=== PATIENT | male | born 2000 | race Caucasian/White ===

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

== ENCOUNTER 2021-10-08 06:28 | Inpatient (IN) | payer MEDICAID ==
[2021-10-08] VITALS (792 sets, daily range): BP systolic 95–102; BP diastolic 48–69; PULSE 68–122; TEMP 97–98.1; O2SAT 93–100
[~2021-10-08] VITALS: Ht 172.7 cm; Wt 61.5 kg
[2021-10-08 06:58] LABS: BASO % 0.4 % (0.0-2.0); EOS % 0.1 % (0.0-4.0); GRAN # 7.2 K/mm3 (1.4-6.5); GRAN % 76.7 % (42.2-75.2); HEMATOCRIT 40.1 % (36.0-47.0); HEMOGLOBIN 13.4 g/dl (12.5-16.1); LYMPH # 1.6 K/mm3 (1.2-3.4); LYMPH % 17.1 % (20.0-51.0); MEAN CELL VOLUME 91 fl (80.0-95.0); MEAN CORPUSCULAR HEMOGLOBIN 30 pg (26-32); MEAN CORPUSCULAR HGB CONC 33 g/dl (33.0-37.0); MEAN PLATELET VOLUME 8.5 fl (7.4-10.4); MONO # 0.5 K/mm3 (0.1-0.6); MONO % 5.5 % (1.7-9.3); PLATELET COUNT 210 K/mm3 (130-400); RED BLOOD COUNT 4.42 M/mm3 (4.20-5.60); REDCELL DISTRIBUTION WIDTH-CV 12.9 % (11.5-14.5)
[2021-10-08 07:23] LABS: ALANINE AMINOTRANSFERASE 8 U/L (0-55); ALBUMIN 4.2 gm/dL (3.5-5.0); ALKALINE PHOSPHATASE 60 U/L (40-150); ANION GAP 14 mmol/L (7-16); AST,SGOT 17 U/L (5-34); BILIRUBIN,TOTAL 0.3 mg/dL (0.2-1.2); BLOOD UREA NITROGEN 10 mg/dL (9-21); CALCIUM 8.2 mg/dL (8.4-10.2); CARBON DIOXIDE 20 mmol/L (22-29); CHLORIDE 108 mmol/L (98-107); CREATININE, serum 0.88 mg/dL (0.72-1.25); GLUCOSE 118 mg/dL (70-99); POTASSIUM 3.5 mmol/L (3.5-4.5); SODIUM 142 mmol/L (136-145); TOTAL PROTEIN 6.6 gm/dL (6.2-8.1)
[2021-10-08 07:28] LABS: ACETAMINOPHEN < 1.0 ug/mL (10-30); SALICYLATE < 5.0 mg/dL (15.0-30.0)
[2021-10-08 07:29] LABS: ALCOHOL(ethanol),MEDICAL 310 mg/dL (0-10)
[2021-10-08 07:56] LABS: TRICYCLIC ANTIDEPRESS URINE NEGATIVE
[2021-10-08 09:28] LABS: ARTERIAL BLD GAS O2 SATURATION 99.4 % (92-100); ARTERIAL BLOOD GAS BASE EXCESS -5.5 (-2-2); ARTERIAL BLOOD GAS HCO3 18.1 meq/L (22-26); ARTERIAL BLOOD GAS PCO2 30.4 mmHg (35-45); ARTERIAL BLOOD GAS pH 7.39 (7.35-7.45)
[2021-10-08 09:30] LABS: ARTERIAL BLOOD GAS PO2 269.3 mmHg (80-100)
--- NOTE | 2021-10-08 09:45 | NUR ---
pt to ICU from ED. PT intubated on mechanical ventilator. PT moved to ICU BED. pt is trying to pull at ET tube and sit up out of bed. PT airway at risk. Propofol and fentanyl started per orders. See eMAR. PT placed on ICU monitor. Vitals obtained. Assessment completed. Hospitalist and Dr. Ellis notified of pateint's arrival. PT calms easily with sedation. OG and ET tube placement confirmed. [place] in place. Parents bedside
--- NOTE | 2021-10-08 12:23 | NUR ---
[facility] [facility] [facility] DC'D AT THIS TIME
--- NOTE | 2021-10-08 16:21 | NUR ---
PT EXTUBATED PER ORDER FROM DR. MARAVILLA. PT CURRENTLY ON ROOM AIR AND RESPONDING ACCORDINGLY. NO DISTRESS NOTED.
--- NOTE | 2021-10-08 16:31 | NUR ---
1500 - PATIENT BECAME VERY AGITATED ATTEMPTING TO PULL AT LINES. SEDATION MEDICATION TITRATED APPROPRIATELY. DR. MARAVILLA NOTIFIED. ORDERS FOR ALCOHOL LEVELS AND A SEDATION VACATION TO BE DONE. 1607- DR. MARAVILLA NOTIFIED OF PATEINT'S BLOOD ALCOHOLL LEVEL. PT IS ALERT AND FOLLOWING COMMANDS. ORDERS RECEIVED TO EXTUBATE. 1615- PT EXTUBATED BY RT WITH RN BEDSIDE. PTS MOM NOTIFIED OF PT STATUS. PT PARENTS ON WAY IN TO SEE PT. 1630- PT RESTING COMFORTABLY IN BED. VSS. ON ROOM AIR. LUNGS CLEAR. PT IS SHOWING SIGNS OF BEIN INEBRIATED HOWEVER IS VERY PLEASANT AND COOPERATIVE. NURSING BEDSIDE SWALLOW COMPLETED. PT TOLERATES WATER WELL. NO NAUSEA NOTED. PT GIVEN CALL AND VERBALIZES UNDERSTANDING OF USE.
--- NOTE | 2021-10-08 19:30 | NUR ---
Received report from LALA Rose. Patient resting quietly in bed watching TV. Remains on room air, tolerating well. Patient reports episodes of nausea with emesis of approximately 200mL. PRN zofran recently administered. Vitals within normal limits. He denies any pain or discomfort.
[2021-10-09] VITALS (613 sets, daily range): BP systolic 98–106; BP diastolic 53–56; PULSE 85–98; TEMP 97.7–98.7; O2SAT 95–100
[2021-10-09 05:31] LABS: BASO # 0.1 K/mm3 (0.0-0.2); BASO % 0.5 % (0.0-2.0); EOS % 0.1 % (0.0-4.0); GRAN # 8.2 K/mm3 (1.4-6.5); GRAN % 74.4 % (42.2-75.2); HEMATOCRIT 38.3 % (36.0-47.0); HEMOGLOBIN 12.8 g/dl (12.5-16.1); LYMPH # 1.8 K/mm3 (1.2-3.4); LYMPH % 16.1 % (20.0-51.0); MEAN CELL VOLUME 91 fl (80.0-95.0); MEAN CORPUSCULAR HEMOGLOBIN 30 pg (26-32); MEAN CORPUSCULAR HGB CONC 33 g/dl (33.0-37.0); MEAN PLATELET VOLUME 9.4 fl (7.4-10.4); MONO % 8.7 % (1.7-9.3); PLATELET COUNT 240 K/mm3 (130-400); RED BLOOD COUNT 4.23 M/mm3 (4.20-5.60); REDCELL DISTRIBUTION WIDTH-CV 13.3 % (11.5-14.5)
[2021-10-09 06:03] LABS: CALCIUM 8.5 mg/dL (8.4-10.2); CREATININE, serum 0.76 mg/dL (0.72-1.25); MAGNESIUM 1.9 mg/dL (1.6-2.6)
--- NOTE | 2021-10-09 07:30 | NUR ---
Report given to LALA Rose.
--- NOTE | 2021-10-09 09:13 | NUR ---
[place] called for screening on PT.
--- NOTE | 2021-10-09 10:07 | NUR ---
PT IS ALERT AND ORIENTED THIS AM. VSS. DENIES PAIN, SHORTNESS OF BREATH OR DIZZINESS. ASSESSMENT COMPLETED. ROOM AIR. IVF RUNNING PER ORDERS. CALL LIGHT IN REACH WILL CALL FOR NEEDS.
--- NOTE | 2021-10-09 12:39 | NUR ---
pT GIVEN SAFETY PLAN AND OTHER RESOURCES FROM [facility]. PT GIVEN EDUCATION AND SUMMARY OF CARE. PT IS ALERT AND ORIENTED. VSS. PT WITH OUT COMPLAINTS. PT DC AT 1239 WITH PARENTS.
== END 2021-10-09 12:39 | disposition home or self-care (01) | DRG 896 ==
LOC: COL.ER 06:28 → ICU 08:38
PROVIDERS: Emergency Medicine; Internal Medicine Pulmonary Disease; ADMIT Internal Medicine
PROC: 0BH17EZ Insertion of Endotracheal Airway into Trachea, Via Natural or Artificial Opening (ICD-10-PCS; principal; 2021-10-08)
PROC: 5A1935Z Respiratory Ventilation, Less than 24 Consecutive Hours (ICD-10-PCS; 2021-10-08)
DX: F10.229 Alcohol dependence with intoxication, unspecified (principal); J96.01 Acute respiratory failure with hypoxia; G93.41 Metabolic encephalopathy; E87.2 Acidosis; F10.239 Alcohol dependence with withdrawal, unspecified; F17.210 Nicotine dependence, cigarettes, uncomplicated; F12.90 Cannabis use, unspecified, uncomplicated; Y90.8 Blood alcohol level of 240 mg/100 ml or more; Z20.822 Contact with and (suspected) exposure to COVID-19; T14.91XA Suicide attempt, initial encounter
CPT/HCPCS: A4314; J1650; J2405; J2704; J3010; J3411; J3475; J7030; J7120